=== PATIENT | female | born 1960 | race American Indian/Alaskan Native ===

== ENCOUNTER 2017-07-29 14:50 | Outpatient (CLI) | payer OTHER ==
--- NOTE | 2017-07-29 15:44 | XRay Report ---
ROUTINE CHEST, TWO VIEWS: HISTORY: Tobacco use. The trachea, heart, mediastinal contour, lung sullivan and bony thorax are unremarkable. IMPRESSION: Unremarkable chest x-ray.
--- NOTE | 2017-07-30 16:30 | Mammography Report ---
BILATERAL DIGITAL SCREENING MAMMOGRAM with CAD: 07/29/17 CLINICAL: Routine screening. COMPARISON:None available. However, a prior mammogram was apparently done at [facility]. FINDINGS: The breasts are heterogeneously dense, which may obscure small masses. Right asymmetries require comparison with the prior mammogram for additional imaging of the right breast. No architectural distortion or suspicious calcifications.The left breast is negative. IMPRESSION: Right asymmetries requiring further evaluation. BI-RADS CATEGORY: 0 -- Additional Evaluation Required RECOMMENDATION: Comparison with a previous mammogram. We will attempt to obtain a prior mammogram for comparison. If we do not obtain a prior mammogram within 30 days, a revised report will be issued recommending a recall for additional imaging. Please be advised that the patient should not schedule an appointment for return until adequate time (at least 2 weeks) has passed for us to obtain the prior mammogram. ACR BI-RADS MAMMOGRAPHIC CODES: 0 = Needs additional imaging evaluation; 1 = Negative; 2 = Benign; 3 = Probably benign; 4 = Suspicious; 5 = Malignant; 6 = Known biopsy-proven malignancy COMMENT: 1. Dense breast tissue, i.e., adenosis, fibrocystic changes, etc., may obscure an underlying neoplasm. 2. Approximately 10% of cancers are not detected with mammography. 3. A negative mammography report should not delay biopsy if a clinically suspicious mass is present. COMMENT: Patient follow-up letters are generated via our Dat[employer] application.
== END 2017-07-29 14:51 | disposition home or self-care (01) ==
LOC: MAMMO 14:50
PROVIDERS: ATTEND Internal Medicine
DX: Z12.31 Encounter for screening mammogram for malignant neoplasm of breast (principal); R63.4 Abnormal weight loss; Z72.0 Tobacco use
CPT/HCPCS: 71046; 77067

== ENCOUNTER 2017-09-05 15:02 | Outpatient (CLI) | payer OTHER ==
--- NOTE | 2017-09-05 16:36 | Mammography Report ---
Right mammogram and right breast ultrasound: Based on recent mammogram Spot compression views of an asymmetry in the lateral breast demonstrates persistence of the mostly circumscribed elongated nodule which measures approximately 2.5 cm in length. This is not unequivocally identified in the compression lateral view. No calcifications. Ultrasound at 10:00 8 cm from the nipple demonstrates an elongated 17mm inhomogeneously hypoechoic mass. It is moderately well circumscribed. No internal flow with color imaging. In the 11:00 location 9 cm from the nipple there is a slightly elongated homogeneously hypoechoic circumscribed nodule measuring 5.3 mm. No internal flow. Impressions: Indeterminate right breast lesion at 10:00. 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 Recommendation: Ultrasound-guided biopsy of 10:00 lesion. 6 month ultrasound followup of the 11:00 lesion. The findings and recommendations have been discussed with the patient. BI-RADS CATEGORY: 4 = Suspicious ACR BI-RADS MAMMOGRAPHIC CODES: 0 = Needs additional imaging evaluation; 1 = Negative; 2 = Benign; 3 = Probably benign; 4 = Suspicious; 5 = Malignant; 6 = Known biopsy-proven malignancy COMMENT: 1. Dense breast tissue, i.e., adenosis, fibrocystic changes, etc., may obscure an underlying neoplasm. 2. Approximately 10% of cancers are not detected with mammography. 3. A negative mammography report should not delay biopsy if a clinically suspicious mass is present.
== END 2017-09-05 15:03 | disposition home or self-care (01) ==
LOC: SPVWC 15:02
PROVIDERS: ATTEND Internal Medicine
DX: N63.10 Unspecified lump in the right breast, unspecified quadrant (principal); R92.8 Other abnormal and inconclusive findings on diagnostic imaging of breast

== ENCOUNTER 2017-09-17 12:39 | Outpatient (CLI) | payer OTHER ==
--- NOTE | 2017-09-17 14:14 | Mammography Report ---
RIGHT DIGITAL DIAGNOSTIC MAMMOGRAM: 09/17/17 12:39:00 CLINICAL: For clip placement immediately status post ultrasound biopsy. COMPARISON:09/05/17 FINDINGS: A biopsy clip is now identified 10 o'clock and correlates with the previously described mammographic finding. IMPRESSION: Concordant clip placement status post ultrasound biopsy. BI-RADS CATEGORY: 4--Suspicious Pathology pending.
--- NOTE | 2017-09-17 14:59 | Ultrasound Report ---
ULTRASOUND GUIDED NEEDLE CORE BIOPSY RIGHT BREAST WITH CLIP PLACEMENT: 09/17/17 13:00:00 CLINICAL: Right breast mass at 10 o'clock 8 cm from the nipple. COMPARISON : FINDINGS: The procedure was explained to the patient and informed consent was obtained. Ultrasound demonstrated the previously described mass at 10 o'clock. I marked the breast with a felt tip marker and a time out was called. The skin was prepped with Betadine and anesthetized with 1% lidocaine. Needle core biopsy was performed through a tiny dermatotomy using ultrasound guidance, 2% lidocaine with epinephrine for deep anesthesia and a 14-gauge Achieve biopsy device. 4 cores were obtained and placed in formalin. A clip was deployed within the mass. The patient tolerated the procedure well and there were no apparent complications. Hemostasis was achieved with minimal pressure and a sterile dressing was applied. A two view mammogram demonstrated satisfactory placement of the clip. She left the department in good condition and was given instructions for wound care and followup. IMPRESSION: Uncomplicated ultrasound guided needle core biopsy with clip placement right breast.
== END 2017-09-17 12:40 | disposition home or self-care (01) ==
LOC: SPVWC 12:39
PROVIDERS: ATTEND Internal Medicine
DX: N63.11 Unspecified lump in the right breast, upper outer quadrant (principal)
CPT/HCPCS: 19083; 77065; 88305; A4648